=== PATIENT | female | born 1980 | race Hispanic/Latino ===

== ENCOUNTER 2017-07-19 11:28 | Inpatient (IN) | payer MEDICAID ==
[2017-07-19 13:21] LABS: BASO % 0.4 % (0.0-2.0); EOS # 0.2 K/uL (0.0-0.7); EOS % 1.9 % (0.0-4.0); HEMOGLOBIN 11.3 g/dL (11.0-16.0); MEAN CELL VOLUME 83.1 fL (81.0-99.0); MEAN CORPUSCULAR HEMOGLOBIN 28.1 pg (27.0-31.0); MEAN CORPUSCULAR HGB CONC 33.8 g/dL (33.0-37.0); MEAN PLATELET VOLUME 8.3 fL (7.2-11.7); MONO # 0.6 K/uL (0.0-0.8); MONO % 7.3 % (0.0-10.0); NEUT # 5.8 K/uL (1.8-7.0); NEUT % 67.4 % (50.0-75.0); NRBC % 0.1 % (0.0-2.0); RBC 4.02 Mil/uL (3.80-5.20); RED CELL DISTRIBUTION WIDTH 16.5 % (11.5-14.5); WHITE BLOOD COUNT 8.7 K/uL (4.8-10.8)
[2017-07-19 13:35] LABS: ALB/GLOB RATIO 1.3 (1.0-2.1); ALBUMIN 3.8 g/dL (3.5-5.0); ALT/SGPT 20 U/L (9-52); AST/SGOT 21 U/L (14-36); BLOOD UREA NITROGEN 9 mg/dL (7-17); GFR AFRICAN-AMERICAN > 60; GFR NON-AFRICAN AMERICAN > 60
[2017-07-19 13:36] LABS: SQUAMOUS EPITHIAL 2 /hpf (0-5); URINE BILIRUBIN NEGATIVE (NEGATIVE); URINE BLOOD NEGATIVE (NEGATIVE); URINE CLARITY Clear (Clear); URINE COLOR Yellow (YELLOW); URINE GLUCOSE (UA) NORMAL (Normal); URINE LEUKOCYTE ESTERASE NEG Leu/uL (Negative); URINE PROTEIN NEGATIVE (NEGATIVE); URINE UROBILINOGEN NORMAL mg/dL (0.2-1.0)
[2017-07-19 14:05] LABS: BARBITURATES, UR NEGATIVE (NEGATIVE); PHENCYCLIDINE, UR NEGATIVE (NEGATIVE)
[2017-07-19 14:23] LABS: BENZODIAZEPINES, UR POSITIVE (NEGATIVE); OPIATES, UR POSITIVE (NEGATIVE)
--- NOTE | 2017-07-19 14:28 | C.PDOC ---
History Of Present Illness <Diaz Enrique - Last Filed: 07/19/17 19:59> <JoelBennieGriffin Deja - Last Filed: 07/22/17 14:31> 37 yr old female who is approximately 20 weeks , present to the ER for heroin and Xanax detox. 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 Patient denies SI, HI, hallucinations, nausea, vomiting, abdominal pain, dysuria, vaginal discharge or vaginal bleeding. (Elias Maldonado) <Diaz Enrique - Last Filed: 07/19/17 19:59> History Per: Patient History/Exam Limitations: no limitations Suicide/Self Injury Attempted (Context): None Recent travel outside of the [place]: No <JoelGriffin Deja - Last Filed: 07/22/17 14:31> Time Seen by Provider: 07/19/17 12:24 Chief Complaint (Nursing): Substance Abuse Past Medical History Reviewed: Historical Data, Nursing Documentation, Vital Signs - Medical History PMH: Anemia, Anxiety, Bipolar Disorder, Depression, Hypothyroidism Family History: States: No Known Family Hx - Social History Hx Alcohol Use: No Hx Substance Use: Yes - Immunization History Hx Tetanus Toxoid Vaccination: No Hx Influenza Vaccination: No Hx Pneumococcal Vaccination: No <JoelBennieGriffin Deja - Last Filed: 07/22/17 14:31> Vital Signs: Last Vital Signs Temp 98.0 F 07/22/17 13:15 Pulse 74 07/22/17 13:15 Resp 18 07/22/17 13:15 BP 91/50 L 07/22/17 13:15 Pulse Ox 98 07/22/17 13:15 Review Of Systems Except As Marked, All Systems Reviewed And Found Negative. Gastrointestinal: Negative for: Nausea, Vomiting, Abdominal Pain Genitourinary: Negative for: Dysuria, Vaginal Discharge, Vaginal Bleeding Psych: Negative for: Suicidal ideation <JoelBennieGriffin Deja - Last Filed: 07/22/17 14:31> Physical Exam - Physical Exam Appears: Non-toxic, No Acute Distress Skin: Warm, Dry, No Rash Oral Mucosa: Moist Neck: Normal Chest: Symmetrical Cardiovascular: Rhythm Regular Respiratory: Normal Breath Sounds, No Rales, No Rhonchi, No Stridor, No Wheezing Gastrointestinal/Abdominal: Normal Exam, Soft, No Tenderness, No Guarding, No Rebound, Other (+ gravid) Back: Normal Inspection, No CVA Tenderness Extremity: No Swelling Neurological/Psych: Oriented x3, Normal Speech <Elias Maldonado M - Last Filed: 07/22/17 14:31> ED Course And Treatment - Laboratory Results Result Diagrams: 07/19/17 13:14 07/19/17 13:14 <Diaz Enrique - Last Filed: 07/19/17 19:59> - Laboratory Results Result Diagrams: 07/19/17 13:14 07/19/17 13:14 O2 Sat by Pulse Oximetry: 100 (RA) Pulse Ox Interpretation: Normal - CT Scan/US US - 1st Trimester Other Rad Studies (CT/US): Read By Radiologist, Radiology Report Reviewed CT/US Interpretation: OB , limited ultrasound. Comparison: None available. Technique: Real-time ultrasound was performed through the pelvis. Findings: There is a single living fetus in variable presentation. Amniotic fluid volume is within normal limits. Anterior fundal placenta. The placenta is not previa. There are no adnexal masses or cysts evident. Cervix length measures approximately 3.9 cm. Measurements and calculations: Fetus has a composite sonographic age of 20 weeks 4 days. This calculation is based on the biparietal diameter, head circumference, abdominal circumference, and femur length. Estimated heart rate 133 beats per min. Impression: Single living fetus with a composite sonographic age of 20 weeks 4 days. Estimated heart rate 133 beats per min. The study was performed for emergent evaluation and the whole anatomic survey of the fetus was not performed. This should be performed on an outpatient elective basis as clinically warranted. <Elias Maldonado M - Last Filed: 07/22/17 14:31> Medical Decision Making <Diaz Enrique - Last Filed: 07/19/17 19:59> <Elias Maldonado M - Last Filed: 07/22/17 14:31> Medical Decision Making: IMPRESSION: Substance abuse PLAN: * US - 1st Trimester * Alcohol Serum * Drug Screen * Labs * Urinalysis NOTE: * Spoke to OB on-call, Dr. Stringer who requests to get a US to determine gestational period. * Will reassess patient once US results are back. * Discussed US findings with Dr. Stringer. Patient is 20 weeks 4 days. * Patient to go up to L&D. * Crisis team made aware of the findings. (Elias Maldonado) Disposition Discussed With Dr.: Tanja Robertson Counseled Patient/Family Regarding: Studies Performed, Diagnosis <Diaz Enrique - Last Filed: 07/19/17 19:59> Discussed With DrDaniel: Tree Stringer Doctor Will See Patient In The: Hospital Counseled Patient/Family Regarding: Studies Performed - Disposition Disposition Time: 18:18 <Elias Maldonado - Last Filed: 07/22/17 14:31> - Disposition Disposition: HOSPITALIZED Condition: FAIR - Clinical Impression Clinical Impression: Drug abuse <LeorosalbaEstellejus - Last Filed: 07/19/17 19:59> - Scribe Statement The provider has reviewed the documentation as recorded by the Scribe <Elias Maldonado - Last Filed: 07/22/17 14:31> - Scribe Statement Nuria Alvarado (Elias Maldonado) Provider Attestation: All medical record entries made by the Scribe were at my direction and personally dictated by me. I have reviewed the chart and agree that the record accurately reflects my personal performance of the history, physical exam, medical decision making, and the department course for this patient. I have also personally directed, reviewed, and agree with the discharge instructions and disposition. (Elias Maldonado) Decision To Admit - Pt Status Changed To: Hospital Disposition Of: Inpatient - Admit Certification Admit to Inpatient:: After my assessment, the patient will require hospitalization for at least two midnights. This is because of the severity of symptoms shown, intensity of services needed, and/or the medical risk in this patient being treated as an outpatient. - InPatient: Physician Admission Certification: I certify that this patient requires 2 or more midnights of care for the following reason:: After my assessment, the patient will require hospitalization for at least two midnights. This is because of the severity of symptoms shown, intensity of services needed, and/or the medical risk in this patient being treated as an outpatient. - . Bed Request Type: Detox Admitting Physician: Tanja Robertson <Diaz Enrique - Last Filed: 07/19/17 19:59> <Elias Maldonado - Last Filed: 07/22/17 14:31> - . Patient Diagnosis: Drug abuse
--- NOTE | 2017-07-19 18:03 | US ---
OB , limited ultrasound Comparison: None available. Technique: Real-time ultrasound was performed through the pelvis. Findings: There is a single living fetus in variable presentation. Amniotic fluid volume is within normal limits. Anterior fundal placenta. The placenta is not previa. There are no adnexal masses or cysts evident. Cervix length measures approximately 3.9 cm. Measurements and calculations: Fetus has a composite sonographic age of 20 weeks 4 days. This calculation is based on the biparietal diameter, head circumference, abdominal circumference, and femur length. Estimated heart rate 133 beats per min. Impression: Single living fetus with a composite sonographic age of 20 weeks 4 days. Estimated heart rate 133 beats per min. The study was performed for emergent evaluation and the whole anatomic survey of the fetus was not performed. This should be performed on an outpatient elective basis as clinically warranted.
--- NOTE | 2017-07-19 19:35 | OBDCSUM ---
Datetime: 07/19/2017 19:32 Discharged to, Provider: Home Follow up at, Provider: after dc Follow up in weeks, Provider: clinic Discharge Comment, Provider: send to detox f/u pmd after dc Discharge Diagnosis Prov Other: 20week heroin/xanacx addic
--- NOTE | 2017-07-19 20:33 | PCM.BM ---
<Elie Gaonajackie Short - Last Filed: 07/19/17 20:32> Treatment Plan Problems - Problems identified on initial assessmt Ineffective Coping Skills Date Initiated: 07/19/17 Time Initiated: 20:32 Assessment reference: NA Status: Active Treatment assets and liabiliti Patient Assests: ADL independent Patient Liabilities: substance abuse - Milieu Protocol Maintain good personal hygiene: daily Encourage regular showers, daily Remind patient to perform daily oral care, other Assist patient to perform ADL's Maintain personal safety: every shift Educate patient to report safety concerns to staff, every shift Monitor environment for contraband/sharps Medication safety: Monitor for expected outcome, potential side effects: every shift, Assess barriers to learning: every shift, Assess readiness for medication education: every shift <Yazmin Schultz - Last Filed: 07/22/17 16:17> Family Contact Family involvement: Family/SO is involved Family contact: Patient agrees to contact - Goals for Treatment Patient goals for treatment: Complete detox and transition to MMT. Discharge/Continuing Care - Education Needs Education Needs: Patient Medication, Patient Diagnosis/Disease Process, Patient Coping Skills, Patient Anger Management skills, Patient Placement options, Patient Community resources, Patient Health Practices/Safety (), Significant Other Medication, Significant Other Diagnosis/Disease Process, Significant Other Coping Skills, Significant Other Anger Management skills, Significant Other Placement options, Significant Other Community resources - Discharge Discharge Criteria: Ability to care for self, No longer exhibiting s/s of withdrawal, Reduction of target symptoms Discharge to:: Home, With Family - Treatment Team Participation Patient/Family/SO Statement: 07/22/17 16:19 "[facility] Discussed with Family/SO: No Was Patient/Family/SO present at Treatment Team Meeting: Yes <Caroline Verma - Last Filed: 07/23/17 23:45> - Diagnosis (1) Opioid use disorder, severe, dependence Status: Acute Interventions: 07/23/17 23:45 * Assess 7x/week regarding severity of withdrawal * Educate regarding risks, benefits, side effects and alternatives of medications * Use Motivational Interviewing for abstinence * Use CBT for relapse prevention * Medication management for withdrawal symptoms * Encourage medication assisted treatment *
[2017-07-20] MEDS: Prenatal Multivit/Folic Acid/Iron Tab PO SCH (14:42)
[2017-07-21] MEDS: Prenatal Multivit/Folic Acid/Iron Tab PO SCH (09:11)
--- NOTE | 2017-07-21 23:04 | PCM.PSYCH ---
Initial Psychiatric Evaluation - Initial Psychiatric Evaluation Legal Status: Capacity Chief Complaint (in patient's own words): I'M AND I WANT MY BABY TO BE HEALTHY POSSIBLE. Patient's Reaction to Hospitalization: I'M RELIEVED History of Present Illness and Precipitating Events: PT IS A 37 YEAR OLD WHITE UNEMPLOYED FEMALE LIVING WITH HER BOY FRIEND AND HIS MOTHER WHOSE DRUG OF CHOICE IS HEROIN. PT'S PARENTS WHEN PT WAS 19 YEARS OLD. MOTHERV SUFFERS FROM DEPRESSION AND FATHER USES CANNABIS AND COCAINE. PT HAS A YOUNGER BROTHER. 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 PT HAS NO HISTORY. PT HAS BEEN ARRESTED FOR SHOPLIFTING. PT BEEN PRESCRIBED XANAX 2 MG PO TID. SHE WOULD USE ABOUT 10 MG A DAY OF XANASTEALING, FLIPPING AND ANY THING TO GET THE MONEY FOR THE HEROIN. PT HAS HAD APREVIOUS DETOX AT [facility], HER LONGEST PERIOD OF SOBRIETY IS 2 MONTHS. X. . PT HAS BEEN ON WELLBUTRIN AND LEXAPRO WELL. PT HAS BEEN DIAGNOSED WITH BIPOLAR 2, PT'S HEROIN USE BEGAN 5 YEARS AGO. PT AT HER [facility] USE 25 TO 100 BAGS OF HEROIN A DAY INTRAVENOUSLY. SHE WOULD PAY FOR THE HEROIN BY ANY MEANS POSSIBLE. SHE HAD ONE DETOX AT [facility] LAST NOVEMBER. PT'S LONGEST PERIOD OF SOBRIETY WAS 2 MONTHS. PT IS 20 WEEKS Current Medications: Active Medications Generic Name Dose Route Start Last Admin Trade Name Freq PRN Reason Stop Dose Admin Acetaminophen 325 mg 07/19/17 20:39 07/20/17 17:32 Tylenol 325mg Tab PO 325 mg Q6 PRN Administration Pain, moderate (4-7) Diphenhydramine HCl 25 mg 07/19/17 22:00 07/21/17 21:12 Benadryl PO 25 mg HS PRN Administration Insomnia Lorazepam 2 mg 07/21/17 21:00 07/21/17 21:11 Ativan PO 07/26/17 20:59 2 mg Q6H PARMJIT Administration Taper Methadone HCl 20 mg 07/20/17 12:11 07/21/17 09:12 Methadone PO 07/24/17 10:14 20 mg DAILY PARMJIT Administration Taper Ondansetron HCl 4 mg 07/20/17 12:51 07/20/17 17:31 Zofran Odt PO 4 mg Q8 PRN Administration Nausea/Vomiting Multivit/Folic Acid/Iron 1 tab 07/20/17 10:00 07/21/17 09:11 PO 1 tab DAILY PARMJIT Administration Past Psychiatric History - Past Psychiatric History Prior Professional Help: SEE HPI Pertinent Medical Hx (Current Medical&Sleep Prob, Allergies): Allergies Allergy/AdvReac Type Severity Reaction Status Date / Time codeine Allergy Verified 07/19/17 11:45 Cholecalciferol [Vitamin D] 1,000 unit PO DAILY 07/19/17 Cyanocobalamin [Vitamin B12] 500 mcg PO DAILY 07/19/17 Review of Systems - Constitutional Constitutional: Malaise - EENT Eyes: UNREMARKABLE Ears: UNREMARKABLE Nose/Mouth/Throat: UNREMARKABLE - Breasts Breasts: UNREMARKABLE - Cardiovascular Cardiovascular: UNREMARKABLE - Respiratory Respiratory: UNREMARKABLE - Gastrointestinal Gastrointestinal: Nausea - Genitourinary Genitourinary: UNREMARKABLE - Menstruation Menstruation: UNREMARKABLE - Musculoskeletal Musculoskeletal: Arthralgias, Myalgias - Neurological Neurological: Tingling, Tremor, Weakness - Psychiatric Psychiatric: Anxiety - Endocrine Endocrine: UNREMARKABLE - Hematologic/Lymphatic Hematologic: UNREMARKABLE Mental Status Examination - Affect Affect: Constricted - Motor Activity Motor Activity: Calm - Reliability in Providing Information Reliability in Providing Information: Good - Speech Speech: Organized - Mood Mood: Anxious - Formal Thought Process Formal Thought Process: No Impairment - Cognitive Functions Orientation: Person, Place, Situation, Time Sensorium: Alert Attention/Concentration: Attentive Abstract Thinking: As evidence by abstract perception of proverbs Estimate of Intelligence: Average Judgement: Intact, as evidence by: Good judgement Memory: Recent intact, as evidence by: Ability to recall events of the day, Remote intact, as evidenced by: Abilit to recall sig. 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
--- NOTE | 2017-07-21 23:15 | PCM.PYCHPN ---
Psychiatric Progress Note - Psychiatric Progress Note Patient Chief Complaint: I HAVE NAUSEA WORSE THAN FROM MY Problems Identified/Issues Discussed: MMTP VS SUBUTEX PROS AND CONS Medical Problems: NOTHING ACUTE Diagnostic Results: REVIEWED DSM 5 Symptoms Update: NAUSEA MARIA DVIVIANANANETTE HOJUAN CTIMMY Medication Change: Yes (METHADONE & ATIVAN TAPER) Medical Record Reviewed: Yes Mental Status Examination - Cognitive Function Orientation: Person, Place, Situation, Time Memory: Intact Attention: WNL Concentration: WNL Association: WNL Fund of Knowledge: WNL - Mood Mood: Depressed, Anxious - Affect Affect: Constricted - Formal Thought Process Formal Thought Process: No Impairment - Suicidal Ideation Suicidal Ideation: No - Homicidal Ideation Homicidal Ideation: No Goal/Treatment Plan - Goal/Treatment Plan Need for Continued Stay: Severe depression anxiety Progress Toward Problem(s) and Goals/Treatment Plan: OPIOID WITHDRAWAL METHADONE OPIOID USE DISORDER SEVERE [place] CBT MILIEU GROUP AND RECREATIONA; THERAPY SEDATIVE HYPNOTIC WITHDRAWAL ATIVAN SEDADTAIVE HYPNOTIC USE DISORDER [place] CBT MILIEU RECREATIONAL GROUP THERAPY SUPPORTIVE PSYCHOTHERAPY Estimated Date of D/C: 07/27/17 - Smoking Cessation Smoking Cessation Initiated: No
[2017-07-22] MEDS: Prenatal Multivit/Folic Acid/Iron Tab PO SCH (09:05)
--- NOTE | 2017-07-22 10:12 | OBHP ---
Datetime: 07/19/2017 19:28 IP Adm Impression: , intrauterine IP Chief Complaint Other: drug detox IP Admit Plan: Discharge home Admit Comment, IP Provider: at 20weeks came to er for detox for xanX AND HERION. PT IS TAKING 2 5-75 PACKS OF heoin and 4-5 mg xanax every day. no symtoms. pt pmd told her to get detox as she is pr egnant. last dose today in mor obhx 1 x ta pmh drug all nkda psh de socg sono 20wee+fh letitia no ctxs a/p at 20weeks heroin/xanax addic plan send to detox unti pt cleared from ob cont medical mnagenet follow up obgyn after dc Pelvic Type - PN: Adequate Extremities - PN: Normal Abdomen - PN: Normal Back - PN: Normal Breast - PN: Normal Lungs - PN: Normal Heart - PN: Normal Thyroid - PN: Normal Neurologic - PN: Normal HEENT - PN: Normal General - PN: Normal Contraction Comments Provider: none Comments, ACOG Physical Exam: non gravid,non tender Vital Signs Provider: Reviewed; Within Normal Limits NICHD Decel Fetus A IP Provider: None Genitourinary Exam: Normal DTRs - PN: Normal
--- NOTE | 2017-07-22 13:35 | PCM.PYCHPN ---
Psychiatric Progress Note - Psychiatric Progress Note Patient seen today, length of contact: 18 min Patient Chief Complaint: "I'm withdrawing a little" Problems Identified/Issues Discussed: The pt is seen, chart reviewed, case discussed with staff. Support given, CBT and VA used briefly No new symptoms reported, improving slowly and needs more time No SEs from medications, risks discussed, incl. use of ativan and methadone during . She understood all risks and agreed to continue After care discussed - wants to go to a methadone program. Medication Change: Yes (METHADONE & ATIVAN TAPER) Medical Record Reviewed: Yes Mental Status Examination - Cognitive Function Orientation: Person, Place, Situation, Time Memory: Intact Attention: WNL Concentration: WNL Association: WNL Fund of Knowledge: WNL - Mood Mood: Depressed, Anxious - Affect Affect: Constricted - Speech Speech: Appropriate - Formal Thought Process Formal Thought Process: No Impairment - Suicidal Ideation Suicidal Ideation: No - Homicidal Ideation Homicidal Ideation: No Goal/Treatment Plan - Goal/Treatment Plan Need for Continued Stay: Severe depression anxiety, Severe functional impairment Progress Toward Problem(s) and Goals/Treatment Plan: Continue detox, adjusted As needed medications All risks, benefits and alternatives of medications, including no medications and incl. during , discussed and the patient understood and agreed. Attend groups and activities Supportive therapy and psychoeducation VA for abstinence CBT for relapse prevention Encourage MAT Refer to rehab or IOP Attend self-help groups as well Estimated Date of D/C: 07/27/17
[2017-07-23] MEDS: Prenatal Multivit/Folic Acid/Iron Tab PO SCH (10:44)
--- NOTE | 2017-07-23 14:06 | PCM.PYCHPN ---
Psychiatric Progress Note - Psychiatric Progress Note Patient seen today, length of contact: 18 min Patient Chief Complaint: "I'm feeling a bit anxious today" Problems Identified/Issues Discussed: The pt is seen, chart reviewed, case discussed with staff. Support given, CBT and DC used briefly No new symptoms reported, improving slowly and needs more time No SEs from medications, risks discussed, incl. use of ativan and methadone during . She understood all risks and agreed to continue After care discussed - continues to want to go to a methadone program. Medication Change: Yes (METHADONE & ATIVAN TAPER) Medical Record Reviewed: Yes Mental Status Examination - Cognitive Function Orientation: Person, Place, Situation, Time Memory: Intact Attention: WNL Concentration: WNL Association: WN Fund of Knowledge: WNL - Mood Mood: Depressed, Anxious - Affect Affect: Constricted - Speech Speech: Appropriate - Formal Thought Process Formal Thought Process: No Impairment - Suicidal Ideation Suicidal Ideation: No - Homicidal Ideation Homicidal Ideation: No Goal/Treatment Plan - Goal/Treatment Plan Need for Continued Stay: Severe depression anxiety, Severe functional impairment Progress Toward Problem(s) and Goals/Treatment Plan: Continue detox, adjusted As needed medications All risks, benefits and alternatives of medications, including no medications and incl. during , discussed and the patient understood and agreed. Attend groups and activities Supportive therapy and psychoeducation DC for abstinence CBT for relapse prevention Encourage MAT Refer to rehab or IOP Attend self-help groups as well Estimated Date of D/C: 07/25/17
[2017-07-24] MEDS: Prenatal Multivit/Folic Acid/Iron Tab PO SCH (10:00)
[2017-07-24 14:09] VITALS: RESP 18
--- NOTE | 2017-07-24 16:27 | PCM.PYCHPN ---
Psychiatric Progress Note - Psychiatric Progress Note Patient seen today, length of contact: 19 min Patient Chief Complaint: "I'm worried about leaving" Problems Identified/Issues Discussed: The pt is seen, chart reviewed, case discussed with staff. Pt anxious about discharge plans. She plans on living with her mother but still hasn't discussed it with her. Boyfriend will be picking her up upon discharge. States that she can live with boyfriend if mother refuses to bring her in. Support given, CBT and [place] used briefly No new symptoms reported, improving slowly and needs more time No SEs from medications, risks discussed, incl. use of ativan and methadone during . She understood all risks and agreed to continue After care discussed - wants to go to a methadone program. Medication Change: Yes (METHADONE & ATIVAN TAPER) Medical Record Reviewed: Yes Mental Status Examination - Cognitive Function Orientation: Person, Place, Situation, Time Memory: Intact Attention: WNL Concentration: WNL Association: WNL Fund of Knowledge: WNL - Mood Mood: Depressed, Anxious - Affect Affect: Constricted - Speech Speech: Appropriate - Formal Thought Process Formal Thought Process: No Impairment - Suicidal Ideation Suicidal Ideation: No - Homicidal Ideation Homicidal Ideation: No Goal/Treatment Plan - Goal/Treatment Plan Need for Continued Stay: Severe depression anxiety, Severe functional impairment Progress Toward Problem(s) and Goals/Treatment Plan: Continue detox, adjusted As needed medications All risks, benefits and alternatives of medications, including no medications and incl. during , discussed and the patient understood and agreed. Attend groups and activities Supportive therapy and psychoeducation AL for abstinence CBT for relapse prevention Encourage MAT Refer to rehab or IOP Attend self-help groups as well Estimated Date of D/C: 07/25/17
[2017-07-25] MEDS: Prenatal Multivit/Folic Acid/Iron Tab PO SCH (09:07)
[2017-07-25 10:07] VITALS: BP 114/72; PULSE 84; TEMP 97.9; O2SAT 97
--- NOTE | 2017-07-25 13:45 | PCM.PYCHDC ---
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 Reason for request. 2. Findings. 3. Follow-up Consultations: DEVELOPMENTAL [employer]RON[employer]SEMBLER Consult: Dr. Padron due to patient being Summary of Hospital Course include:: 1. Description of specific treatment plan utilized for patients during their course of treatmen. 2. Summarize the time- course for resolution of acute symptoms and/or regressed behaviors. 3. Describe issues identified and worked on during hospitalization. 4. Describe medication utilized. 5. Describe medical problems identified and treated. 6. Reassessment of suicide risk Summary of Hospital Course: Patient was admitted for Sedative Hypnotic Disorder and Opioid withdrawal. Patient was started on methadone detox. Patient was placed on as needed medications. All risks, benefits and alternatives of medications, including no medications and incl. during , discussed and the patient understood and agreed. DEVELOPMENTAL [employer]LECTRON[employer] ASSEMBLER was consulted as patient was 20 weeks during her admission. Patient attended groups and activities. Supportive therapy and psychoeducation, NC for abstinence, CBT for relapse prevention. Patient was encouraged MAT. Patient attended self-help groups as well. Upon discharge patient states she will be living with her mother and will be attending a methadone program. 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
== END 2017-07-25 10:17 | disposition home or self-care (01) | DRG 886 ==
LOC: C.ER 11:28 → C.EROB 11:28 → C.7D 20:00
PROVIDERS: ADMIT Psychiatry & Neurology Psychiatry; ATTEND Psychiatry & Neurology Psychiatry
PROC: HZ2ZZZZ Detoxification Services for Substance Abuse Treatment (ICD-10-PCS; principal; 2017-07-19)
PROC: HZ56ZZZ Individual Psychotherapy for Substance Abuse Treatment, Psychoeducation (ICD-10-PCS; 2017-07-19)
PROC: HZ59ZZZ Individual Psychotherapy for Substance Abuse Treatment, Supportive (ICD-10-PCS; 2017-07-19)
DX: O99.322 Drug use complicating pregnancy, second trimester (principal); F11.23 Opioid dependence with withdrawal; F13.239 Sedative, hypnotic or anxiolytic dependence with withdrawal, unspecified; O99.342 Other mental disorders complicating pregnancy, second trimester; F31.81 Bipolar II disorder; O99.282 Endocrine, nutritional and metabolic diseases complicating pregnancy, second trimester; E03.9 Hypothyroidism, unspecified; O09.522 Supervision of elderly multigravida, second trimester; Z3A.20 20 weeks gestation of pregnancy